=== PATIENT | female | born 1965 | race Caucasian/White ===

== ENCOUNTER → 2018-01-31 | Outpatient (CLI) | payer OTHER ==
[~2018-01-31] MED LIST: FENOFIBRATE160 MG PO; FLEXERIL PO; NORCO 5-325 TA1 EACH PO; NORVASC 5 MG TAB5 MG PO; POTASSIUM PO; PRINZIDE 20-251 EACH PO; SIMVASTATIN40 MG PO; SKELAXIN 800 M800 M1 PO; TRAMADOL 50 MG50 MG PO; VALIUM2 MG PO; VITAMIN D1000 UNI1 PO; ZANTAC PO
== END ==
LOC: M.RAD 08:27
DX: Z12.31 Encounter for screening mammogram for malignant neoplasm of breast (principal)

== ENCOUNTER → 2020-11-03 | Outpatient (CLI) | payer OTHER | LOC: M.RAD 08:02 | PROVIDERS: ATTEND Family Medicine | DX: Z12.31 Encounter for screening mammogram for malignant neoplasm of breast (principal) ==

== ENCOUNTER → 2020-11-11 | Outpatient (CLI) | payer OTHER | LOC: M.ULTRA 10:59 | PROVIDERS: ATTEND Physician Assistant | DX: N60.02 Solitary cyst of left breast (principal); N64.89 Other specified disorders of breast ==